=== PATIENT | male | born 1980 | race Caucasian/White ===

== ENCOUNTER 2017-03-13 19:00 | Emergency (ER) | payer OTHER ==
[~2017-03-13] VITALS: Ht 182.9 cm; Wt 115.0 kg
[2017-03-13] MEDS ORDERED: TEGR200T PO (19:08)
[2017-03-13 19:10] VITALS: BP 178/98; PULSE 80; RESP 16; TEMP 97.6; O2SAT 98
[2017-03-13] MEDS ORDERED: KETOROLAC TROMETHAMINE 60 MG/2 ML (IM) VIAL IM ONE (19:45)
[2017-03-13 20:15] VITALS: BP 144/92; PULSE 72; RESP 18; O2SAT 96
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
[2017-03-13] MEDS ORDERED: TIZA4CAP3 PO (21:02)
[2017-03-13] MEDS ORDERED: IBUP-232 PO (21:02)
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
== END 2017-03-13 21:26 | disposition home or self-care (01) ==
LOC: NEPD 19:00
DX: S16.1XXA Strain of muscle, fascia and tendon at neck level, initial encounter (principal); V43.52XA Car driver injured in collision with other type car in traffic accident, initial encounter
CPT/HCPCS: 72125; 96372; 99285; J1885